=== PATIENT | male | born 1990 | race Caucasian/White ===

== ENCOUNTER 2019-05-25 19:34 | Emergency (ER) | payer OTHER ==
[2019-05-25 19:40] VITALS: BP 150/89
[2019-05-25] MEDS ORDERED: CLINDAMYCIN 150 MG CAPSULE PO STA (20:10)
[2019-05-25] MEDS ORDERED: BETAMETHASONE AUG 0.05% CREAM 15 GM TUBE TOP STA (20:10)
[2019-05-25] MEDS ORDERED: TRIAMCINOLONE 0.1% OINT 80 GM TUBE TOP STA (20:13)
--- NOTE | 2019-05-25 20:13 | ED Physician Documentation ---
History of Present Illness - Stated complaint Stated Complaint: RT LEG SWELLING - Chief complaint Chief Complaint: General - History obtained from History obtained from: Patient - History of Present Illness Timing: Other (He had a tattoo in the back of the right calf 7 days ago. Starting the last 2 3 days he developed itchiness, pain, and swelling in that area without fevers. It is a red tattoo. It is his first red tattoo.) Review of Systems Constitutional: reports: Reviewed and negative Nose: reports: Reviewed and negative Throat: reports: Reviewed and negative PD PAST MEDICAL HISTORY - Past Medical History Past Medical History: No Neuro: None - Past Surgical History Past Surgical History: Yes HEENT: Tonsil/Adenoidectomy - Present Medications Home Medications: Ambulatory Orders Medication Instructions Recorded Confirmed Clindamycin HCl [Clindamycin 300MG 300 mg PO Q6H #28 capsule 05/25/19 CAP] Triamcinolone 0.1% Oint [Kenalog 1 gm TOP BID #2 tube 05/25/19 0.1% Oint] - Allergies Allergies/Adverse Reactions: Allergies Allergy/AdvReac Type Severity Reaction Status Date / Time Penicillins Allergy Intermediate Hives Verified 05/25/19 19:36 Sulfa (Sulfonamide Allergy Intermediate Hives Verified 05/25/19 19:36 Antibiotics) - Social History Does the pt smoke?: Yes Smoking Status: Current every day smoker Does the pt drink ETOH?: Yes Does the pt have substance abuse?: No - Immunizations Immunizations are current?: Yes - POLST Patient has POLST: No PD ED PE NORMAL - Vitals Vital signs reviewed: Yes - General General: Alert and oriented X 3, No acute distress (He has a tattoo on the posterior right calf. There is redness and tiny vesicles pretty much confined to the area of the tattoo itself with some localized swelling. This is most consistent with a localized allergic reaction but could also be consistent with cellulitis.) - Neuro Neuro: Alert and oriented X 3, Normal speech Results - Vitals Vitals: Vital Signs - 24 hr 05/25/19 19:36 Temperature 37.0 C Heart Rate 94 Respiratory 16 Rate Blood Pressure 150/89 H O2 Saturation 99 Oxygen O2 Source Room air Departure - Departure Disposition: 01 Home, Self Care Clinical Impression: Foreign body reaction to tattoo dyes Cellulitis Qualifiers: Site of cellulitis: extremity Site of cellulitis of extremity: lower extremity Laterality: right Qualified Code(s): L03.115 - Cellulitis of right lower limb Condition: Good Record reviewed to determine appropriate education?: Yes Instructions: Cellulitis Dc Prescriptions: Clindamycin HCl [Clindamycin 300MG CAP] 300 mg PO Q6H #28 capsule Triamcinolone 0.1% Oint [Kenalog 0.1% Oint] 1 gm TOP BID #2 tube Comments: As discussed, this is most consistent with a reaction to the red dye, but infection is not impossible. We are treating for both with the topical steroids and the oral antibiotic. Return if worse or if you develop a fever. "Follow-up with your doctor in 2 to 3 days for recheck.
[2019-05-25] MEDS ORDERED: TRIAMCINOLONE 0.1% CREAM 15 GM TUBE TOP STA (20:16)
[2019-05-25] MEDS ORDERED: TRIAMCINOLONE 0.1% CREAM 15 GM TUBE TOP ONE (20:33)
== END 2019-05-25 20:35 | disposition home or self-care (01) ==
LOC: ED 19:34
DX: T78.49XA Other allergy, initial encounter (principal); L03.115 Cellulitis of right lower limb; F17.200 Nicotine dependence, unspecified, uncomplicated
CPT/HCPCS: 99282; 99283; A9270

== ENCOUNTER 2020-12-27 17:05 | Outpatient (CLI) | payer SELFPAY | END 2020-12-27 17:06 | disposition home or self-care (01) | LOC: COV 17:05 | PROVIDERS: ATTEND Family Medicine | DX: Z20.822 Contact with and (suspected) exposure to COVID-19 (principal) ==